=== PATIENT | female | born 1970 | race Caucasian/White ===

== ENCOUNTER → 2018-11-09 | Outpatient (CLI) | payer MEDICAID | END | disposition home or self-care (01) | LOC: CFH 15:11 | PROVIDERS: ATTEND Nurse Practitioner | DX: Z12.2 Encounter for screening for malignant neoplasm of respiratory organs (principal); J43.2 Centrilobular emphysema; Z87.891 Personal history of nicotine dependence | CPT/HCPCS: G0297 ==

== ENCOUNTER 2018-11-20 11:49 | Inpatient (IN) | payer MEDICAID ==
[~2018-11-20] VITALS: Ht 172.7 cm; Wt 75.7 kg
[2018-11-20] MEDS ORDERED: INHALER (12:03)
[2018-11-20] MEDS ORDERED: ALBUTEROL NEB (12:03)
--- NOTE | 2018-11-20 12:08 | NUR ---
pt to xr.
--- NOTE | 2018-11-20 12:13 | NUR ---
pt back from xr.
[2018-11-20] MEDS ORDERED: ACETAMINOPHEN 500 MG TABLET ONE (12:14)
--- NOTE | 2018-11-20 12:25 | NUR ---
pt bib patricia for possible asthma attack this am. pt also states chills and fever starting this am. temp upon arrival 103.1. connected to monitors. tachy 110, rr 20-30, 92% ra. 2L o2 placed witdh recovery to 97%. iv established booking prizer by patricia. pa and assessment complete. orders received. blood and bc x2 drawn. xr complete. rt tx complete. pt medicated per sep. pt up self to rr with steady gait at this time. awaiting ua sample and resutls.
[2018-11-20] MEDS ORDERED: ALBUTEROL/IPRATROPIUM 2.5MG/0.5MG, 3 ML ONE (12:28)
[2018-11-20] MEDS ORDERED: SODIUM CHLORIDE 0.9% 1,000ML IVBOLUS ONE ×2 (12:30→14:00)
[2018-11-20] MEDS ORDERED: ACETAMINOPHEN 500 MG TABLET PO ONE (12:30)
[2018-11-20] MEDS ORDERED: ALBUTEROL/IPRATROPIUM 2.5MG/0.5MG, 3 ML NPPB ONE (12:30)
[2018-11-20] MEDS ORDERED: LORazepam 2 MG/ML, 1ML ONE (12:35)
[2018-11-20 12:49] LABS: MEAN CORPUSCULAR HEMOGLOBIN 30.6 pg (27.0-34.8); MEAN CORPUSCULAR HGB CONC 33.7 g/dL (32.4-35.8); MEAN CORPUSCULAR VOLUME 90.9 fL (80-100); MEAN PLATELET VOLUME 8.6 fL (7.4-10.4); PLATELET COUNT 183 x10^3/uL (130-400); RED BLOOD COUNT 4.24 x10^6/uL (3.82-5.3)
--- NOTE | 2018-11-20 12:50 | NUR ---
ua collected and sent.
[2018-11-20 12:58] LABS: ALBUMIN 3.8 g/dL (3.4-5.0); ANION GAP 8 mmol/L (5-15); CALCIUM 8.5 mg/dL (8.5-10.1); CHLORIDE 106 mmol/L (98-107)
[2018-11-20 13:00] LABS: MICROSCOPIC AUTO
[2018-11-20] MEDS ORDERED: CEFTRIAXONE PMX 1GM/50ML 50 ML IV ONE (13:00)
[2018-11-20] MEDS ORDERED: LORazepam 2 MG/ML, 1ML IVPush ONE (13:00)
[2018-11-20 13:01] LABS: BASOPHILS % (AUTO) 0 % (0-1); EOSINOPHILS % (AUTO) 0 % (1-7); LYMPHOCYTES # (AUTO) 0.27 x10^3/uL (1-3.4); LYMPHOCYTES % (AUTO) 4 % (22-44); MD SCAN; MONOCYTES # (AUTO) 0.03 x10^3/uL (0.2-0.8); MONOCYTES % (AUTO) 1 % (2-9); NEUTROPHILS # (AUTO) 6.16 x10^3/uL (1.8-6.8); NEUTROPHILS % (AUTO) 95 % (42-75)
[2018-11-20 13:04] LABS: CULTURE INDICATED? YES
[2018-11-20] MEDS ORDERED: CEFTRIAXONE PMX 1GM/50ML 50 ML ONE (13:07)
[2018-11-20] MEDS ORDERED: IBUPROFEN 600 MG TABLET ONE (13:08)
--- NOTE | 2018-11-20 13:18 | NUR ---
pt resting in room with son at bs. temp 102.9, tacky 110s, all other vss on 2L nc. pt medicated per mar. no needs expressed. call light within reach. awaiting results.
[2018-11-20] MEDS ORDERED: IBUPROFEN 200 MG TABLET PO ONE (13:30)
[2018-11-20] MEDS ORDERED: AZITHROMYCIN 500 MG in SODIUM CHLORIDE 0.9% 250 ML IV ONE (13:30)
--- NOTE | 2018-11-20 13:57 | NUR ---
pt resting in room. vss. call light within reach. no needs expressed. awaiting room assignment.
--- NOTE | 2018-11-20 14:10 | NUR ---
report to beau boyd. pt ready for transport.
[2018-11-20] MEDS: NS + 20MEQ KCL 1,000 ML IV SCH (14:25)
[2018-11-20] MEDS ORDERED: ONDANSETRON ODT 4 MG PO PRN (14:30)
[2018-11-20] MEDS ORDERED: LABETALOL 5 MG/ML SYRINGE IVPush PRN (14:30)
[2018-11-20] MEDS ORDERED: hydrALAzine 20 MG/ML, 1ML IVPush PRN (14:30)
[2018-11-20] MEDS ORDERED: GUAIFENESIN/COD200MG-20MG/10ML LIQUID PO PRN (14:30)
[2018-11-20] MEDS: ENOXAPARIN 40 MG/0.4 ML SQ SCH (15:00)
[2018-11-20] MEDS: ONDANSETRON 2MG/ML, 2ML IVPush PRN (17:09)
[2018-11-20 17:40] VITALS: BP 80/58
[2018-11-20 18:39] VITALS: BP 93/56
[2018-11-20] MEDS ORDERED: SODIUM CHLORIDE 0.9%, 500ML IVBOLUS ONE (19:00)
[2018-11-20 19:55] VITALS: BP 98/62
[2018-11-20] MEDS: ALBUTEROL/IPRATROPIUM 2.5MG/0.5MG, 3 ML NPPB SCH (20:00)
[2018-11-20 20:46] VITALS: BP 88/54
[2018-11-20] MEDS: DOXYCYCLINE 100MG TABLET PO SCH (20:50)
[2018-11-21 02:28] VITALS: BP 95/58
[2018-11-21 04:23] VITALS: BP 106/66
[2018-11-21] MEDS: ONDANSETRON 2MG/ML, 2ML IVPush PRN (04:29)
[2018-11-21] MEDS: ACETAMINOPHEN 325 MG TABLET PO PRN ×2 (04:29→10:57)
[2018-11-21] MEDS: NS + 20MEQ KCL 1,000 ML IV SCH ×5 (05:06→22:45)
[2018-11-21 05:43] LABS: MEAN CORPUSCULAR HEMOGLOBIN 30.6 pg (27.0-34.8); MEAN CORPUSCULAR VOLUME 90.1 fL (80-100); PLATELET COUNT 142 x10^3/uL (130-400); RED BLOOD COUNT 3.92 x10^6/uL (3.82-5.3); RED CELL DISTRIBUTION WIDTH 15.3 % (9.6-15.2)
[2018-11-21 05:46] VITALS: BP 89/55
[2018-11-21 05:56] LABS: CHLORIDE 108 mmol/L (98-107)
[2018-11-21 06:00] LABS: ANION GAP 9 mmol/L (5-15); CREATININE 1.26 mg/dL (0.55-1.02)
[2018-11-21 06:21] LABS: MD YES
[2018-11-21 06:23] LABS: <PLATELET ESTIMATE> ADEQUATE; <PLT MORPHOLOGY> NORMAL PLT MORPH; <RBC MORPHOLOGY> NORMAL; BAND#(MANUAL) 2.03 x10^3/uL; BANDS%(MANUAL) 25 % (0-7); LYMPH#(MANUAL) 0.08 x10^3/uL (1-3.4); LYMPHS% (MANUAL) 1 % (22-44); METAMYELOCYTES# (MANUAL) 0.08 x10^3/uL (0-0); METAMYELOCYTES% (MANUAL) 1 % (0-1); MONOS#(MANUAL) 0.16 x10^3/uL (0.3-2.7); MONOS% (MANUAL) 2 % (2-9); SEG#(MANUAL) 5.75 x10^3/uL (1.8-6.8); SEGS% (MANUAL) 71 % (42-75)
[2018-11-21 06:24] LABS: PMNS WITH VACUOLES 1+
[2018-11-21] MEDS: ALBUTEROL/IPRATROPIUM 2.5MG/0.5MG, 3 ML NPPB SCH ×4 (07:00→20:00)
[2018-11-21 07:22] VITALS: BP 95/56
[2018-11-21] MEDS: BUDESONIDE 0.5 MG/2 ML INHA INH SCH ×3 (07:22→20:33)
[2018-11-21] MEDS ORDERED: ACETAMINOPHEN 650 MG SUPP PR PRN (07:30)
[2018-11-21 08:18] LABS: CLOSTRIDIUM DIFFICILE ANTIGEN NEGATIVE; CLOSTRIDIUM DIFFICILE TOXIN NEGATIVE (Negative)
[2018-11-21] MEDS: methylPREDNISolone SOD SUCC 40 MG/ML IV SCH ×2 (09:15→17:39)
[2018-11-21] MEDS: DOXYCYCLINE 100MG TABLET PO SCH ×2 (09:15→21:55)
[2018-11-21 12:46] VITALS: BP 93/56
[2018-11-21] MEDS: LOPERAMIDE 2 MG CAPSULE PO SCH ×2 (14:10→17:38)
[2018-11-21] MEDS: ENOXAPARIN 40 MG/0.4 ML SQ SCH (14:58)
[2018-11-21] MEDS: CEFTRIAXONE PMX 1GM/50ML 50 ML IV SCH (15:07)
[2018-11-21] MEDS ORDERED: LOPERAMIDE 2 MG CAPSULE PO PRN (18:30)
[2018-11-21 19:43] VITALS: BP 111/72
[2018-11-22] MEDS: methylPREDNISolone SOD SUCC 40 MG/ML IV SCH ×2 (01:26→07:59)
[2018-11-22 04:10] VITALS: BP 108/67
[2018-11-22] MEDS: ALBUTEROL/IPRATROPIUM 2.5MG/0.5MG, 3 ML NPPB SCH ×5 (04:45→20:00)
[2018-11-22] MEDS: NS + 20MEQ KCL 1,000 ML IV SCH (05:39)
[2018-11-22 07:33] VITALS: BP 120/82
[2018-11-22] MEDS: DOXYCYCLINE 100MG TABLET PO SCH ×2 (07:58→20:12)
[2018-11-22] MEDS: BUDESONIDE 0.5 MG/2 ML INHA INH SCH ×2 (08:07→20:24)
[2018-11-22 08:20] LABS: MEAN CORPUSCULAR VOLUME 90.9 fL (80-100); MEAN PLATELET VOLUME 9.5 fL (7.4-10.4); PLATELET COUNT 109 x10^3/uL (130-400); RED BLOOD COUNT 3.49 x10^6/uL (3.82-5.3); RED CELL DISTRIBUTION WIDTH 15.9 % (9.6-15.2)
[2018-11-22 08:22] LABS: ANION GAP 7 mmol/L (5-15); CALCIUM 6.9 mg/dL (8.5-10.1); CHLORIDE 120 mmol/L (98-107); CREATININE 0.84 mg/dL (0.55-1.02)
[2018-11-22 08:36] LABS: MD YES
[2018-11-22 08:38] LABS: <RBC MORPHOLOGY> NORMAL; BAND#(MANUAL) 1.99 x10^3/uL; BANDS%(MANUAL) 24 % (0-7); LYMPH#(MANUAL) 0.25 x10^3/uL (1-3.4); LYMPHS% (MANUAL) 3 % (22-44); SEG#(MANUAL) 6.06 x10^3/uL (1.8-6.8); SEGS% (MANUAL) 73 % (42-75)
[2018-11-22 08:39] LABS: <PLATELET ESTIMATE> ADEQUATE; <PLT MORPHOLOGY> NORMAL PLT MORPH
[2018-11-22] MEDS: ONDANSETRON 2MG/ML, 2ML IVPush PRN (09:52)
[2018-11-22] MEDS: GUAIFENESIN ER 600 MG TABLET PO SCH ×2 (09:53→20:13)
[2018-11-22 13:30] VITALS: BP 133/81
[2018-11-22] MEDS: CEFTRIAXONE PMX 1GM/50ML 50 ML IV SCH (15:30)
[2018-11-22] MEDS: ENOXAPARIN 40 MG/0.4 ML SQ SCH (15:30)
[2018-11-22 19:46] VITALS: BP 126/74
[2018-11-22] MEDS: methylPREDNISolone SOD SUCC 125 MG/2 ML IV SCH (20:12)
[2018-11-23 02:31] VITALS: BP 143/88
[2018-11-23] MEDS: BUDESONIDE 0.5 MG/2 ML INHA INH SCH (07:28)
[2018-11-23] MEDS: ALBUTEROL/IPRATROPIUM 2.5MG/0.5MG, 3 ML NPPB SCH (07:28)
[2018-11-23 07:48] VITALS: BP 136/80
[2018-11-23] MEDS: DOXYCYCLINE 100MG TABLET PO SCH (08:15)
[2018-11-23] MEDS: methylPREDNISolone SOD SUCC 125 MG/2 ML IV SCH (08:15)
[2018-11-23] MEDS: GUAIFENESIN ER 600 MG TABLET PO SCH (08:15)
[2018-11-23] MEDS ORDERED: PRED20TA PO (09:07)
[2018-11-23] MEDS ORDERED: DOXY100T PO (09:07)
[2018-11-23] MEDS ORDERED: GUAI600T31 PO (09:07)
[2018-11-23] MEDS ORDERED: CEFD300C37 PO (09:07)
[2018-11-23 09:57] LABS: ANION GAP 4 mmol/L (5-15); CALCIUM 8.6 mg/dL (8.5-10.1); CHLORIDE 113 mmol/L (98-107)
[2018-11-23 09:58] LABS: CREATININE 0.91 mg/dL (0.55-1.02)
[2018-11-23 12:20] VITALS: BP 130/83
== END 2018-11-23 14:00 | disposition home or self-care (01) | DRG 871 ==
LOC: ED 13:04 → EDIP 13:55 → 3NE 14:23 → DCLOUNGE 11-23 13:53
PROVIDERS: ADMIT Internal Medicine; ATTEND Internal Medicine
DX: A41.9 Sepsis, unspecified organism (principal); J96.01 Acute respiratory failure with hypoxia; N17.0 Acute kidney failure with tubular necrosis; J15.9 Unspecified bacterial pneumonia; J44.0 Chronic obstructive pulmonary disease with (acute) lower respiratory infection; J44.1 Chronic obstructive pulmonary disease with (acute) exacerbation; R65.20 Severe sepsis without septic shock; Z99.81 Dependence on supplemental oxygen; Z87.891 Personal history of nicotine dependence; Z90.49 Acquired absence of other specified parts of digestive tract; Z88.0 Allergy status to penicillin
CPT/HCPCS: 36415; 84145; J7620; J7626; 71046; 80048; 81001; 82040; 83605; 85025; 87040; 87086; 87324; 93005; 94640; G0378; J0696; J1650; J2405; J3480; J2060; J2920; J2930; J7030; J7040

== ENCOUNTER 2020-02-24 12:07 | Emergency (ER) | payer MEDICAID ==
[~2020-02-24] VITALS: Ht 165.1 cm; Wt 75.0 kg
[~2020-02-24 12:07] MED LIST: ALBUTEROL NEB; CEFD300C37 PO; DOXY100T PO; GUAI600T31 PO; INHALER; PRED20TA PO
--- NOTE | 2020-02-24 12:09 | NUR ---
CHEYENNE FONG FROM HOME FOR C/O SOB X 5 DAYS. PT STATES SHE HAS HX COPD AND HAS HAD PNA EVERY YR AND IT FEELS THE SAME. STATES SHE WORKS 2 DAYS/WK AT AN ASSISTED [facility]IVING [facility]. PT WEARS 2L NC BASELINE SATING IN HIGH 90'S. PT STATES SHE HAS TAKEN HER INHALERS W/O RELIEF. PT RESTING ON GURNEY. NADN. MONITORS APPLIED. EKG COMPLETED.
[2020-02-24] MEDS ORDERED: PLEASE ENTER HEIGHT AND WEIGHT MC SCH (12:30)
[2020-02-24] MEDS ORDERED: SODIUM CHLORIDE FLUSH 10ML SYR IVF ONE (12:30)
[2020-02-24 12:52] LABS: BASOPHILS # (AUTO) 0.02 x10^3/uL (0-0.1); BASOPHILS % (AUTO) 0 % (0-1); EOSINOPHILS # (AUTO) 0.14 x10^3/uL (0-0.4); EOSINOPHILS % (AUTO) 3 % (1-7); LYMPHOCYTES # (AUTO) 1.31 x10^3/uL (1-3.4); LYMPHOCYTES % (AUTO) 28 % (22-44); MD NO; MEAN CORPUSCULAR HGB CONC 31.9 g/dL (32.4-35.8); MEAN CORPUSCULAR VOLUME 91.1 fL (80-100); MEAN PLATELET VOLUME 8.8 fL (7.4-10.4); MONOCYTES % (AUTO) 9 % (2-9); NEUTROPHILS # (AUTO) 2.84 x10^3/uL (1.8-6.8); NEUTROPHILS % (AUTO) 60 % (42-75); PLATELET COUNT 217 x10^3/uL (130-400); RED CELL DISTRIBUTION WIDTH 14.5 % (9.6-15.2)
--- NOTE | 2020-02-24 12:52 | NUR ---
LUNCH BREAK NOTE: 3 P'S ADDRESSED. VSS.
[2020-02-24 13:05] LABS: ALBUMIN 3.4 g/dL (3.4-5.0); ANION GAP 7 mmol/L (5-15); CALCIUM 8.5 mg/dL (8.5-10.1); CHLORIDE 106 mmol/L (98-107); CREATININE 0.61 mg/dL (0.55-1.02)
[2020-02-24 13:09] LABS: TROPONIN I < 0.015 ng/mL (0.000-0.045)
--- NOTE | 2020-02-24 13:23 | NUR ---
PT RESTING ON GURNEY. NADN. SADLER.
--- NOTE | 2020-02-24 14:00 | NUR ---
PER ERP DR. MURRIETA NO NEED FOR COVID TESTING.
[2020-02-24 14:36] VITALS: BP 113/72
--- NOTE | 2020-02-24 14:47 | NUR ---
PT TO BE DC'D. PT IS ON O2 "15/02" PER PT. CALLED PT'S SON TO HAVE HIM PICK HER UP. NO ANSWER. PT EDUCATED ABOUT [employer]. PT REFUSING [employer] BECAUSE "I NEED TO GO GET MY SON". PT EDUCATED ON NEED FOR O2. OFFERED PT TAXI VOUCHER THEN PT STATED "I GUESS I'LL JUST HAVE TO WALK OUT OF HERE THEN". OFFERED TAXI VOUCHER FOR PT PAID FOR BY THE HOSPITAL PT STATES SHE HAS NO MONEY. 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 EDUCATED THAT TAXI VOUCHER IS FOR ONE STOP ONLY. PT STATES "NO THEN I JUST GOTTA WALK OUT OF HERE". EDUCATED ABOUT NEED FOR CONTINUOUS O2. PT STATES "I'LL BE FINE WITHOUT IT". ERP NOTIFIED.
--- NOTE | 2020-02-24 15:00 | NUR ---
CALLED FOR A SECOND TIME AND WAS ABLE TO SPEAK W/ PT'S SON WHO STATES HE WOULD BE ABLE TO COME DIGESTER OPERATOR PT W/ HER O2 BAG AT 1600. PT MADE AWARE.
--- NOTE | 2020-02-24 15:59 | NUR ---
CALLED PT SON TO COME ANALYTICS DEVELOPER PT. NO ANSWER.
--- NOTE | 2020-02-24 16:08 | NUR ---
PT SON ARRIVED. PT TAKEN TO FRONT LOBBY. PT LEFT W/ SON AND O2 BACKPACK.
== END 2020-02-24 16:11 | disposition home or self-care (01) ==
LOC: ED 12:42
DX: J45.40 Moderate persistent asthma, uncomplicated (principal); J44.9 Chronic obstructive pulmonary disease, unspecified; R00.0 Tachycardia, unspecified
CPT/HCPCS: 36415; 71045; 80048; 82040; 83605; 83880; 84484; 85025; 85379; 87040; 93005; 99285

== ENCOUNTER 2020-10-04 14:13 | Emergency (ER) | payer MEDICAID ==
[~2020-10-04] VITALS: Ht 170.2 cm; Wt 64.0 kg
--- NOTE | 2020-10-04 14:25 | NUR ---
pt is as 50f bib ems for complaints of a SWAIN and SOB. Her chief complaint is the headache which started this morning. She is also experiencing SOB for a few days which her PCP thinks might be a COPD exacerbation. She uses home O2 as needed. She has taken 2 albuterol treatments at home today. She is 90% here on RA. Placed on 2L O2 via NC for her comfort. Cardiac, sp02, and BP monitors in place, call light within reach.
[2020-10-04] MEDS ORDERED: FLUT1BLS3 IH (14:31)
[2020-10-04] MEDS ORDERED: ALBU0.63 NEB (14:31)
[2020-10-04] MEDS ORDERED: ALBU90AE2 INH (14:32)
[2020-10-04] MEDS ORDERED: FLUT100B MT (14:32)
[2020-10-04] MEDS ORDERED: MONT10TA17 PO (14:34)
[2020-10-04] MEDS ORDERED: LORA-59 PO (14:34)
--- NOTE | 2020-10-04 16:02 | NUR ---
pt back from CT, nephew at bedside. all monitors in place, call light within reach.
[2020-10-04 17:19] VITALS: BP 132/81
--- NOTE | 2020-10-04 17:20 | NUR ---
pt resting with room dimmed, nephew at bedside. call light within reach and monitors in place awaiting disposition.
--- NOTE | 2020-10-04 17:38 | NUR ---
PT STATES SHE IS ALLERGIC TO IODINE AND HAD AN EPISODE OF CARDIAC ARREST A CHILD. NOTIFIED MD. HE WILL SPEAK WITH HER REGARDING HER OPTIONS.
--- NOTE | 2020-10-04 17:38 | NUR ---
ADDED IODINE AND SHELLFISH TO ALLERGY LIST
--- NOTE | 2020-10-04 17:42 | NUR ---
CALLED LAB FOR BLOOD DRAW
[2020-10-04 18:03] LABS: ANION GAP 7 mmol/L (5-15); CALCIUM 8.9 mg/dL (8.5-10.1); CHLORIDE 109 mmol/L (98-107); CREATININE 0.65 mg/dL (0.55-1.02)
[2020-10-04 18:19] LABS: BASOPHILS % (AUTO) 0 % (0-1); EOSINOPHILS % (AUTO) 0 % (1-7); LYMPHOCYTES % (AUTO) 6 % (22-44); MEAN CORPUSCULAR HEMOGLOBIN 29.9 pg (27.0-34.8); MEAN CORPUSCULAR HGB CONC 33.1 g/dL (32.4-35.8); MEAN PLATELET VOLUME 8.9 fL (7.4-10.4); MONOCYTES % (AUTO) 6 % (2-9); NEUTROPHILS % (AUTO) 88 % (42-75); PLATELET COUNT 210 x10^3/uL (130-400); RED BLOOD COUNT 4.19 x10^6/uL (3.82-5.3); RED CELL DISTRIBUTION WIDTH 14.1 % (9.6-15.2)
[2020-10-04 18:21] LABS: MD NO
== END 2020-10-04 18:19 | disposition home or self-care (01) ==
LOC: ED 14:25
DX: J32.1 Chronic frontal sinusitis (principal); J32.0 Chronic maxillary sinusitis; R51.9 Headache, unspecified; J44.9 Chronic obstructive pulmonary disease, unspecified; Z87.891 Personal history of nicotine dependence
CPT/HCPCS: 36415; 70450; 80048; 85025; 99284